=== PATIENT | male | born 1985 | race Caucasian/White ===

== ENCOUNTER 2024-07-26 21:38 | Emergency (ER) | payer OTHER ==
[~2024-07-26] VITALS: Ht 185.4 cm; Wt 97.0 kg
[2024-07-26 21:39] VITALS: O2SAT 99
[2024-07-26 21:41] VITALS: BP 179/138; PULSE 97; RESP 14; TEMP 36.1; O2SAT 99
[2024-07-26] MEDS ORDERED: TETANUS, DIPHTHERIA, PERTUSSIS VAC/PF 0.5ML (>10YR OLD) IM ONE (22:00)
[2024-07-26] MEDS: LIDOCAINE HCL/PF 1% 10 MG/ML 5ML VIAL INFIL ONE (23:29)
[2024-07-26] MEDS: BACITRACIN ZINC OINT UDPKT TOP ONE (23:29)
== END 2024-07-27 00:03 | disposition home or self-care (01) ==
LOC: ER 21:38
DX: S61.011A Laceration without foreign body of right thumb without damage to nail, initial encounter (principal); X58.XXXA Exposure to other specified factors, initial encounter; Y93.89 Activity, other specified; Y92.89 Other specified places as the place of occurrence of the external cause; Y99.8 Other external cause status
CPT/HCPCS: 99283; 73130; 12002; J2003